=== PATIENT | female | born 1985 | race Caucasian/White ===

== ENCOUNTER 2018-12-26 14:18 | Emergency (ER) | payer OTHER ==
[2018-12-26 14:30] VITALS: BMI 17.8
--- NOTE | 2018-12-26 14:58 | PDOC ---
*Physical Exam - Vital Signs Last Vital Signs Temp Pulse Resp BP Pulse Ox 98.8 F 94 H 18 101/70 100 12/26/18 14:24 12/26/18 14:24 12/26/18 14:24 12/26/18 14:24 12/26/18 14:24 Medical Decision Making - Medical Decision Making 12/26/18 14:58 Pt seen by Midlevel Provider under my direct supervision Pt interviewed and examined Ancillary studies reviewed I agree with plan as outlined by Midlevel Provider Discharge - Follow up/Referral Referrals: Gavin Mejía MD [Primary Care Provider] - - Patient Discharge Instructions - Post Discharge Activity
[2018-12-26] MEDS ORDERED: ACETAMINOPHEN 1000 MG/100 ML VIAL (NON FORMULARY) IVPB ONE (15:03)
[2018-12-26] MEDS ORDERED: SODIUM CHLORIDE 1,000 ML IV STA (15:03)
[2018-12-26] MEDS ORDERED: ACETAMINOPHEN INJECTION 100 ML IVPB ONE (15:11)
--- NOTE | 2018-12-26 15:49 | PDOC ---
History of Present Illness - General Chief Complaint: Pain, Acute Stated Complaint: ABD PAIN Time Seen by Provider: 12/26/18 14:35 History Source: Patient Exam Limitations: Language Barrier (pest control worker used) Past History - Past Medical History Allergies/Adverse Reactions: Allergies Allergy/AdvReac Type Severity Reaction Status Date / Time No Known Allergies Allergy Verified 12/26/18 14:21 Home Medications: Ambulatory Orders Hydroxychloroquine So4 [Plaquenil -] 200 mg PO BID 12/26/18 COPD: No Other medical history: "connective tissue disorder" - Surgical History Abdominal Surgery: Yes (cyst removal) - Psycho Social/Smoking Cessation Hx Smoking History: Never smoked *Physical Exam - Vital Signs Last Vital Signs Temp Pulse Resp BP Pulse Ox 98.8 F 94 H 18 101/70 100 12/26/18 14:24 12/26/18 14:24 12/26/18 14:24 12/26/18 14:24 12/26/18 14:24 - Physical Exam General Appearance: No: Apparent Distress HEENT: negative: Muffled/Hoarse voice, Pharyngeal Erythema, Tonsillar Exudate, Tonsillar Erythema, Nasal Congestion, Rhinorrhea, Sinus Tenderness Respiratory/Chest: positive: Lungs Clear, Normal Breath Sounds. negative: Respiratory Distress Cardiovascular: positive: Regular Rhythm, Regular Rate, S1, S2. negative: Murmur Gastrointestinal/Abdominal: positive: Normal Bowel Sounds, Soft. negative: Tender, Distended, Guarding, Rebound Musculoskeletal: negative: CVA Tenderness Neurologic: positive: Alert, Normal Mood/Affect ED Treatment Course - LABORATORY CBC & Chemistry Diagram: 12/26/18 15:43 12/26/18 15:43 Medical Decision Making - Medical Decision Making 33 y/o F hx of rheumatoid arthritis (on Plaquenil) presents with epigastric pain x 2 days along with watery diarrhea from last night. Mentions had 3 episodes yesterday and 5 episodes today. +mild nausea. Recently came [place] ago. Denies fever, URI sxs, sob, cp, vomiting, urinary symptoms, rash. Possible traveler's diarrhea Plan: Labs, IVF, stool cx, Tylenol, reassess 12/26/18 15:49 Labs pending Patient signed out to MANOHAR Rodriguez 12/26/18 15:59 Discharge - Discharge Information Problems reviewed: Yes Clinical Impression/Diagnosis: Travelers' diarrhea - Follow up/Referral Referrals: Gavin Mejía MD [Primary Care Provider] - - Patient Discharge Instructions - Post Discharge Activity
[2018-12-26 15:53] LABS: BASO % 0.6 % (0-2.0); EOS % 4.6 % (0-4.5); HEMATOCRIT 39.3 % (32.4-45.2); HEMOGLOBIN 12.5 GM/dL (10.7-15.3); LYMPH % 17.3 % (8-40); MCH 29.5 pg (25.7-33.7); MCHC 31.9 g/dl (32.0-36.0); MEAN CELL VOLUME 92.6 fl (80-96); MONO % 8.3 % (3.8-10.2); NEUT % 69.2 % (42.8-82.8); PLATELET COUNT 190 K/MM3 (134-434); RBC 4.25 M/mm3 (3.60-5.2); RDW 14.5 % (11.6-15.6); WHITE BLOOD COUNT 4.7 K/mm3 (4.0-10.0)
[2018-12-26 16:24] LABS: ALBUMIN 4.4 g/dl (3.4-5.0); BILIRUBIN,TOTAL 0.3 mg/dL (0.2-1); BLOOD UREA NITROGEN 7.1 mg/dL (7-18); CALCIUM 9.3 mg/dL (8.5-10.1); CREATININE 0.8 mg/dL (0.55-1.3); MAGNESIUM 2.1 mg/dL (1.8-2.4); POTASSIUM 3.9 mmol/L (3.5-5.1); TOT PROT 8.1 g/dl (6.4-8.2)
--- NOTE | 2018-12-26 16:38 | PDOC ---
*Physical Exam - Vital Signs Last Vital Signs Temp Pulse Resp BP Pulse Ox 98.8 F 94 H 18 101/70 100 12/26/18 14:24 12/26/18 14:24 12/26/18 14:24 12/26/18 14:24 12/26/18 14:24 - Physical Exam General Appearance: Yes: Nourished, Appropriately Dressed. No: Apparent Distress HEENT: positive: Normal ENT Inspection Neck: positive: Supple Respiratory/Chest: positive: Lungs Clear, Normal Breath Sounds. negative: Respiratory Distress, Accessory Muscle Use Cardiovascular: positive: Regular Rhythm, Regular Rate Gastrointestinal/Abdominal: positive: Soft. negative: Organomegaly Musculoskeletal: positive: Normal Inspection Extremity: positive: Normal Inspection Integumentary: positive: Normal Color Neurologic: positive: Fully Oriented, Alert, Normal Mood/Affect, Normal Response ED Treatment Course - LABORATORY CBC & Chemistry Diagram: 12/26/18 15:43 12/26/18 15:43 - ADDITIONAL ORDERS Additional order review: Laboratory Results 12/26/18 12/26/18 15:47 15:43 Sodium 138 Potassium 3.9 Chloride 105 Carbon Dioxide 25 Anion Gap 8 BUN 7.1 Creatinine 0.8 Est GFR (CKD-EPI)AfAm 111.48 Est GFR (CKD-EPI)NonAf 96.19 Random Glucose 85 Calcium 9.3 Magnesium 2.1 Total Bilirubin 0.3 AST 24 ALT 31 Alkaline Phosphatase 92 Total Protein 8.1 Albumin 4.4 Urine HCG, Qual Negative 12/26/18 15:43 RBC 4.25 MCV 92.6 MCHC 31.9 L RDW 14.5 MPV 11.0 Neutrophils % 69.2 Lymphocytes % 17.3 Monocytes % 8.3 Eosinophils % 4.6 H Basophils % 0.6 - Medications Given in the ED: ED Medications Discontinued Medications Generic Name Dose Route Start Last Admin Trade Name Freq PRN Reason Stop Dose Admin Acetaminophen 1,000 mg 12/26/18 15:03 12/26/18 15:49 Ofirmev Injection - IVPB 12/26/18 15:04 1,000 mg ONCE ONE Administration Sodium Chloride 1,000 mls @ 1,000 mls/hr 12/26/18 15:03 12/26/18 15:49 Normal Saline - IV 12/26/18 16:02 1,000 mls/hr ASDIR STA Administration Medical Decision Making - Medical Decision Making 12/26/18 16:36 I assumed care of this 33-year-old female with history of Rheumatoid arthritis presented with complaint of 2-day history of diarrhea and epigastric pain with nausea status post recent travel. Patient on immunosuppressive medication for Rheumatoid arthritis. CBC, CMP labs unremarkable. Urine hCG negative. Symptoms likely traveler's diarrhea. Given patient history of only 2 days of non-bloody diarrhea, patient be discharged on loperamide and maalox for gastroenteritis with advised to increase fluid intake and GI follow-up as needed. Patient reports feeling better after IV fluids and Tylenol and stable for discharge. Discharge - Discharge Information Problems reviewed: Yes Clinical Impression/Diagnosis: Travelers' diarrhea, Gastroenteritis Condition: Stable Disposition: HOME - Admission No - Additional Discharge Information Prescriptions: Loperamide HCl [Loperamide] 2 mg PO Q8H PRN #12 capsule PRN Reason: diarrhea Mag Hydrox/Aluminum Hyd/Simeth [Maalox Advanced Suspension] 30 ml PO Q8H PRN # 200 ml PRN Reason: abdominal discomfort - Follow up/Referral Referrals: Gavin Mejía MD [Primary Care Provider] - Gerardo Suárez MD [Staff Physician] - - Patient Discharge Instructions Patient Printed Discharge Instructions: DI for Viral Gastroenteritis -- Adult Additional Instructions: All your labs are normal. Your symptoms is likely caused by viral infection. Take prescribed medications as prescribed for diarrhea. Increase fluid intake. Follow-up with referred GI doctor Dr. Suárez if symptoms persist for more than 4 days Todos tus laboratorios son normales. Elicia sntomas probablemente son causados ?? por teresa infeccin viral. [place] los medicamentos recetados segn lo prescrito para la diarrea. Aumentar la ingesta de lquidos. Jem un seguimiento con el mdanna GI derivado si los sntomas persisten brenda ms de 4 sr. Print Language: DJIBOUTIAN - Post Discharge Activity
[2018-12-26 16:55] VITALS: BP 108/72; PULSE 86; TEMP 98.1
== END 2018-12-26 17:19 | disposition home or self-care (01) ==
LOC: JER 14:18
PROC: 3E033NZ Introduction of Analgesics, Hypnotics, Sedatives into Peripheral Vein, Percutaneous Approach (ICD-10-PCS; principal; 2018-12-26)
DX: A09 Infectious gastroenteritis and colitis, unspecified (principal)
CPT/HCPCS: 36415; 80053; 83735; 84703; 85025; 96374; 99284-25; J0131; J7030